=== PATIENT | male | born 1955 | race Caucasian/White ===

== ENCOUNTER 2020-03-01 18:09 | Emergency (ER) | payer MEDICARE ==
[2020-03-01 18:50] LABS: ABSOLUTE EOSINOPHILS # (AUTO) 0.1 10^3/uL (0.0-0.6); ABSOLUTE LYMPHOCYTES (AUTO) 1.4 10^3/uL (0.5-4.7); ABSOLUTE MONOCYTES (AUTO) 0.9 10^3/uL (0.1-1.4); ABSOLUTE NEUT (AUTO) 4.4 10^3/uL (1.7-8.2); BASOPHILS % (AUTO) 0.7 % (0-2); EOSINOPHILS % (AUTO) 2.1 % (0-6); HEMATOCRIT 42.4 % (37.9-51.0); LYMPHOCYTES % (AUTO) 20.5 % (13-45); MEAN CORPUSCULAR HEMOGLOBIN 33.7 pg (27.0-33.4); MEAN CORPUSCULAR HGB CONC 35.3 g/dL (32.0-36.0); MEAN CORPUSCULAR VOLUME 95 fl (80-97); MONOCYTES % (AUTO) 12.7 % (3-13); PLATELET COUNT 211 10^3/uL (150-450); RED BLOOD COUNT 4.44 10^6/uL (4.35-5.55); RED CELL DISTRIBUTION WIDTH 13.6 % (11.5-14.0); TOTAL CELLS COUNTED % (AUTO) 100 %; WHITE BLOOD COUNT 6.9 10^3/uL (4.0-10.5)
[2020-03-01 18:57] LABS: APPEARANCE,URINE CLEAR; BILIRUBIN,URINE NEGATIVE (NEGATIVE); COLOR,URINE YELLOW; GLUCOSE, URINE NEGATIVE (NEGATIVE); KETONES,URINE TRACE mg/dL (NEGATIVE); LEUKOCYTE ESTERASE,URINE NEGATIVE (NEGATIVE); NITRITE,URINE NEGATIVE (NEGATIVE); PROTEIN,URINE NEGATIVE (NEGATIVE); URINE SPECIFIC GRAVITY 1.027; UROBILINOGEN,URINE NEGATIVE mg/dL (<2.0)
[2020-03-01 19:09] LABS: ALKALINE PHOSPHATASE 116 U/L (38-126); ANION GAP 8 (5-19); ASPARTATE AMINO TRANSFERASE 23 U/L (17-59); BILIRUBIN,DIRECT 0.3 mg/dL (0.0-0.4); BILIRUBIN,TOTAL 0.5 mg/dL (0.2-1.3); BLOOD UREA NITROGEN 19 mg/dL (7-20); CALCIUM 9.3 mg/dL (8.4-10.2); CARBON DIOXIDE 28 mmol/L (22-30); CHLORIDE 101 mmol/L (98-107); GLUCOSE 101 mg/dL (75-110); POTASSIUM 4.4 mmol/L (3.6-5.0); TOTAL PROTEIN 6.5 g/dL (6.3-8.2)
[2020-03-01 19:11] LABS: ALCOHOL < 10 mg/dL (NONE DETECTED)
[2020-03-01 19:13] LABS: URINE AMPHETAMINES SCREEN NEGATIVE; URINE BARBITURATES SCREEN NEGATIVE; URINE BENZODIAZEPINES SCREEN NEGATIVE; URINE COCAINE SCREEN NEGATIVE; URINE MARIJUANA (THC) SCREEN NEGATIVE; URINE METHADONE SCREEN NEGATIVE; URINE PHENCYCLIDINE SCREEN NEGATIVE
--- NOTE | 2020-03-01 19:20 | ER Document Report ---
ED Seizure <MYRON ALONZO IV - Last Filed: 03/01/20 21:44> <SAMM RODRIGUEZ - Last Filed: 03/02/20 10:00> - General Chief Complaint: Seizure Stated Complaint: ALTERED MENTAL STATUS Time Seen by Provider: 03/01/20 18:23 Primary Care Provider: THERESA BONDS MD [NO LOCAL MD] - 03/03/20 JOSIE TAYLOR MD [Primary Care Provider] - Follow up as needed Notes: 65-year-old man is brought into the emergency department by EMS who apparently picked the patient up from a Highway journeyman pipe welder who called, the patient was sitting in the officers car only answering (yes sir") to questions. Per EMS the patient began having a seizure episode and it stopped without any intervention. And transport to the hospital the patient began seizing again and was given 2 mg of Ativan IV push. Here in the emergency department the patient is quite confused and unable to follow directions or answer questions appropriately. It is also note that he has a hearing aid in his left ear. I was able to reach the patient's son whose phone number is located on his medical bracelet. He notes that his stepfather had brain surgery, seizure disorder, and when he seizes he loses the ability to communicate, there is also a bottle with the patient of Divalproex 500 mg 2 tablets twice a day. It is now my believe that the patient has post ictal. Apparently the is on her way to the hospital. (SAMM RODRIGUEZ) Past Medical History - Social History Smoking Status: Unknown if Ever Smoked Family History: Reviewed & Not Pertinent <SAMM RODRIGUEZ - Last Filed: 03/02/20 10:00> Review of Systems - Review of Systems -: Yes ROS unobtainable due to patient's medical condition - Patient was not answering questions/answers not reliable <SAMM RODRIGUEZ - Last Filed: 03/02/20 10:00> Physical Exam <SAMM RODRIGUEZ - Last Filed: 03/02/20 10:00> - Vital signs Vitals: Resp Pulse Ox 19 95 03/01/20 18:29 03/01/20 18:29 - Notes Notes: PHYSICAL EXAMINATION: Physical Exam: General: Well-nourished well-developed 65-year-old confused man unable to answer questions appropriately. HEENT: NC/AT, pupils equal round and reactive to light, MM moist,nares clear, oropharynx clear, airway patent Neck: supple, no adenopathy, no masses. Good range of motion Lungs: clear, no wheezing, no rales no rhonchi CVS: Regular rate and rhythm no murmur gallop or rub Abdomen: Soft, active, nontender, no masses, no hepatosplenomegaly Ext: No edema, clubbing or cyanosis. Neuro: Alert and responsive, right arm appears to have decreased tone and decreased resistance to movement apparent to the left side and the left lower and right lower extremities Skin: Intact no open lesions, no rash (SAMM RODRIGUEZ) Course - Laboratory Result Diagrams: 03/01/20 18:29 03/01/20 18:29 - Diagnostic Test Radiology reviewed: Reports reviewed <MYRON ALONZO IV - Last Filed: 03/01/20 21:44> - Laboratory Result Diagrams: 03/01/20 18:29 03/01/20 18:29 - Diagnostic Test Radiology reviewed: Image reviewed, Reports reviewed - EKG Interpretation by Ma Rate: Normal - EKG interpreted by Dr. Rodriguez: Normal sinus rhythm, rate 84, QT interval 348, PA interval 188, normal axis, nonspecific T wave abnormality diffusely, no acute ST elevation or depression abnormalities, no ischemic findings, there is no prior EKG to compare. <SAMM RODRIGUEZ - Last Filed: 03/02/20 10:00> - Re-evaluation Re-evalutation: 03/01/20 21:44 Results of ED MSE discussed with patient and patient's . All questions were answered prior to discharge. Patient's states that she is taking her to be seen by the neurologist here in [place] on 03/03/2020. Patient is scheduled to have an MRI done on 03/03/2020. Patient's states that usually when he has a breakthrough seizure she gives him liquid diazepam via syringe into his cheek of his mouth. Patient states she is almost out of the liquid diazepam. This MD agreed to provide a prescription for small amount of liquid diazepam until the patient is seen by their neurologist in the event of another breakthrough seizure. Patient's states that the patient is improving and is coming back to baseline she also says that the patient is anxious to go home. Patient himself also states he is anxious to go home. Emergency signs and symptoms, reasons to return to the emergency department discussed with patient and patient's . (MYRON ALONZO IV) - Vital Signs Vital signs: Temp Pulse Resp BP Pulse Ox 98.2 F 83 17 143/97 H 96 03/01/20 22:26 03/01/20 22:26 03/01/20 22:26 03/01/20 22:26 03/01/20 22:26 - Laboratory Laboratory results interpreted by me: 03/01/20 03/01/20 03/01/20 18:29 18:29 18:29 MCH 33.7 H Sodium 136.6 L Urine Ketones TRACE H - Diagnostic Test Radiology results interpreted by va: 03/01/20 19:33 CT head noncontrast: Mild chronic changes of atrophy and microvascular ischemia, no acute process noted. (SAMM RODRIGUEZ) Discharge <MYRON ALONZO IV - Last Filed: 03/01/20 21:44> <SAMM RODRIGUEZ - Last Filed: 03/02/20 10:00> - Discharge Clinical Impression: Seizure, Seizure disorder, History of brain surgery Condition: Stable Disposition: HOME, SELF-CARE Additional Instructions: Return to the Emergency Department without delay if any worse. HOME CARE INSTRUCTIONS & INFORMATION: Thank you for choosing us for your medical needs. We hope you're satisfied with the care you received. After you leave, you must properly care for your problem and, at the same time, observe its progress. Any condition can change. Some illnesses can change rapidly over hours or days. If your condition worsens, return to the Emergency Department or see your physician promptly. ABOUT YOUR X-RAYS AND EKG'S: If you had an EKG or X-rays taken, they have been read by the Emergency Physician. The X-rays and EKG's will also be read by a Radiologist or Communication And Outreach Manager within 24 hours. If discrepancies are noted, you will be notified by telephone. Please be certain the ED has a correct telephone number & address where you can be reached. Also, realize that some fractures or abnormalities do not show up on initial X-rays. If your symptoms continue, see your physician. ABOUT YOUR LABORATORY TEST: If you had laboratory tests, the results have been reviewed by the Emergency Physician. Some test results (for example cultures) may not be available for several days. You will be contacted if any test result shows you need additional treatment. Please be certain the ED has a correct telephone number and address where you can be reached. ABOUT YOUR MEDICATIONS: You will receive instructions on how to take your medicine on the prescription label you receive. Additional information may be provided by the Pharmacy. If you have questions afterwards, call the ED for clarification or further instructions. Some prescribed medications may cause drowsiness. Do not perform tasks such as driving a car or operating machinery without consulting your Pharmacist. If you feel you need a refill of pain medication, your condition will need re-evaluation. Please do not call for a refill of any medication. ABOUT YOUR SIGNATURE: Signature of this document acknowledges to followin. Understanding that you received emergency treatment and that you may be released before al medical problems are known or treated. Please be certain the ED has a correct phone number & address where you can be reached. 2. Acknowledgement that you will arrange for follow-up care as recommended. 3. Authorization for the Emergency Physician to provide information to your follow-up Physician in order to maximize your care. AT ANY TIME, IF YOUR SYMPTOMS CHANGE SIGNIFICANTLY OR WORSEN OR YOU DEVELOP NEW SYMPTOMS, RETURN TO THE EMERGENCY DEPARTMENT IMMEDIATELY FOR RE-EVALUATION. OUR GOAL IS TO PROVIDE EXCELLENT MEDICAL CARE! WE HOPE THAT WE HAVE MET YOUR EXPECTATIONS DURING YOUR EMERGENCY DEPARTMENT VISIT AND THAT YOU FEEL YOU HAVE RECEIVED EXCELLENT CARE! Seizure, Known Epileptic You have had a seizure. Seizures may "break through" in an epileptic due to stress of infection or injury, a change in blood chemistry, or drug and alcohol use. Another common cause is failure to take medication as prescribed. Your doctor has evaluated your situation for the likely cause of this seizure. It is important that you follow his advice concerning any medication changes and follow-up care. Further testing of anti-seizure medication levels in your blood may be necessary. If you have a equipment driver's license, it's important that you DO NOT DRIVE until given permission by your physician. This seizure must be reported to the equipment driver's license bureau. Call the doctor or return if seizures recur, or if new or unusual symptoms arise -- such as severe headache, confusion, excessive sleepiness, local weakness or numbness, neck stiffness, or fever. Prescriptions: Diazepam 5 mg PO PRN PRN #30 ml PRN Reason: breakthrough seizure Referrals: JOSIE TAYLOR MD [Primary Care Provider] - Follow up as needed THERESA BONDS MD [NO LOCAL MD] - 03/03/20
--- NOTE | 2020-03-01 19:26 | RADIOLOGY REPORT (SQ) ---
EXAM DESCRIPTION: CT HEAD WITHOUT IMAGES COMPLETED DATE/TIME: 03/01/2020 7:02 pm REASON FOR STUDY: altered mental status COMPARISON: None. TECHNIQUE: Axial images acquired through the brain without intravenous contrast. Images reviewed wi th bone, brain and subdural windows. Images stored on PACS. All CT scanners at this facility use dose modulation, iterative reconstruction, and/or weight based d osing when appropriate to reduce radiation dose to as low as reasonably achievable (ALARA). [facility]: Dose Right [facility]: CareDose [facility]: Dose Right [facility]: Teradose 4D [facility]: Smart 6Rooms RADIATION DOSE: CT Rad equipment meets quality standard of care and radiation dose reduction techniq ues were employed. CTDIvol: 53.2 mGy. DLP: 991 mGy-cm. mGy. LIMITATIONS: None. FINDINGS: VENTRICLES: Prominent. CEREBRUM: No masses. No hemorrhage. No midline shift. Areas of low density in the white matter mos t likely due to chronic micro-vascular ischemic change. No evidence for acute infarction. CEREBELLUM: No masses. No hemorrhage. No alteration of density. No evidence for acute infarction. EXTRAAXIAL SPACES: Mild age-related involutional change. No fluid collections. No masses. ORBITS AND GLOBE: No intra- or extraconal masses. Normal contour of globe without masses. CALVARIUM: No fracture. PARANASAL SINUSES: No fluid or mucosal thickening. SOFT TISSUES: No mass or hematoma. OTHER: No other significant finding. IMPRESSION: MILD CHRONIC CHANGES OF ATROPHY AND MICROVASCULAR ISCHEMIA. NO ACUTE PROCESS. EVIDENCE OF ACUTE STROKE: NO. TECHNICAL DOCUMENTATION: JOB ID: [id number] Quality ID # [id number]: Final reports with documentation of one or more dose reduction techniques (e.g., Au tomated exposure control, adjustment of the mA and/or kV according to patient size, use of iterative reconstruction technique) 2010 [employer]- All Rights Reserved Reading location - IP/workstation name: [email or web address]
--- NOTE | 2020-03-01 20:18 | RADIOLOGY REPORT (SQ) ---
EXAM DESCRIPTION: X-RAY CHEST- One View CLINICAL HISTORY: Seizure COMPARISON: None available TECHNIQUE: Single view of the chest. FINDINGS: There are overlying EKG leads. Low lung volumes with compressive changes. There are no discrete air space infiltrates, pneumothoraces or pleural effusions. The pulmonary vascularity is normal. The cardiomediastinal silhouette is normal in size. Osseous structures appear grossly intact. IMPRESSION: There are no acute lung parenchymal findings. Low lung volumes with compressive changes.
--- NOTE | 2020-03-01 20:19 | EKG REPORT ---
SEVERITY:- BORDERLINE ECG - SINUS RHYTHM BORDERLINE T ABNORMALITIES, DIFFUSE LEADS : Confirmed by: Shanika Mcnally MD 01-Mar-2020 20:18:41
[2020-03-01 22:28] VITALS: BP 143/97
== END 2020-03-01 22:28 | disposition home or self-care (01) ==
LOC: ER 18:09
DX: G40.909 Epilepsy, unspecified, not intractable, without status epilepticus (principal); Z79.899 Other long term (current) drug therapy; Z98.890 Other specified postprocedural states
CPT/HCPCS: 36415; 70450; 71045; 80053; 80164; 80307; 81001; 83735; 85025; 93005; 93010; 99285

== ENCOUNTER → 2020-04-22 | Outpatient (CLI) | payer MEDICARE ==
--- NOTE | 2020-04-23 11:12 | RADIOLOGY REPORT (SQ) ---
EXAM DESCRIPTION: KNEE RIGHT 2 VIEWS IMAGES COMPLETED DATE/TIME: 04/22/2020 3:25 pm REASON FOR STUDY: PAIN IN RIGHT KNEE M25.561 PAIN IN RIGHT KNEE M17.11 UNILATERAL PRIMARY OSTEOART HRITIS, RIGHT KNEE COMPARISON: None. NUMBER OF VIEWS: Two views. TECHNIQUE: AP and lateral radiographic images acquired of the right knee. LIMITATIONS: None. FINDINGS: MINERALIZATION: Normal. BONES: No acute fracture or dislocation. No worrisome bone lesions. There are small posterior patella r osteophytes. JOINT: Small joint effusion. OTHER: No other significant finding. IMPRESSION: Patellofemoral degenerative joint changes. No evidence of osteomyelitis. TECHNICAL DOCUMENTATION: JOB ID: [id number] 2010 [employer]- All Rights Reserved Reading location - IP/workstation name: [email or web address]
== END ==
LOC: OD 15:00
PROVIDERS: ATTEND Physician Assistant
DX: M17.11 Unilateral primary osteoarthritis, right knee (principal); M25.561 Pain in right knee